=== PATIENT | male | born 1990 | race Caucasian/White ===

== ENCOUNTER 2016-12-29 08:59 | Emergency (ER) | payer MEDICAID ==
[2016-12-29 09:04] VITALS: RESP 16; TEMP 98.2
[2016-12-29] MEDS ORDERED: IBUPROFEN 600 MG TAB PO ONE (09:42)
--- NOTE | 2016-12-29 09:46 | EDPHY ---
H & P Time Seen by Provider: 12/29/16 09:12 HPI/ROS: HPI Left foot and ankle injury. 26-year-old male by private vehicle. This patient reports that he was rock climbing. He was about 10 feet off the ground when he fell. He reports that his left foot impacted the ground on the heel and missed the crash pad. He complains of isolated pain to his left heel as well as pain just below the medial malleolus. He denies any other injury or complaint. His head did not hit the ground. There was no loss of consciousness. She denies neck pain. No other extremity pain. ROS: Constitutional: No fever, no chills. No weakness. Respiratory: No cough. No shortness of breath. Cardiac: No chest pain, no palpitations. Gastrointestinal: No abdominal pain, no vomiting, no diarrhea. Genitourinary: No hematuria. No dysuria or increased frequency with urination. Musculoskeletal: No back pain. No neck pain. As above. Skin: No rashes. No lacerations or abrasions. Neurological: No headache. No focal weakness or altered sensation. Past medical history: Denies any past medical history. No allergies to medications. Social history: Here by himself. Nonsmoker. Physical Exam: General Appearance: Alert, no distress. This patient is responding to questions appropriately and in full sentences. This patient appears well- hydrated and well-nourished. Eyes: Pupils equal and round no pallor or injection. No lid edema, erythema or injection. Left foot and ankle exam: He does have some tenderness on the distal aspect of the heel. There is no associated soft tissue swelling, ecchymosis, erythema or warmth. He also has some focal tenderness just inferior and posterior to the medial malleolus. Again no associated soft tissue swelling, ecchymosis, erythema or warmth. The skin is intact. No tenderness on palpation of the proximal fibula. The left foot is neurovascularly intact. Neurological: Motor sensory function is grossly intact. Cranial nerves are normal. Gait is normal. Skin: Warm and dry, no rashes. Musculoskeletal: Neck is supple and nontender. No midline cervical, thoracic, lumbar, sacral tenderness on palpation. Extremities are symmetrical. All joints range without pain or impingement except the left ankle. Psychiatric: No agitation. No depression. Database: EKG: Imaging: Left foot and calcaneus x-ray series: Negative for fracture, subluxation, dislocation. Interpreted by me. Left ankle x-ray series: Negative for fracture, subluxation, dislocation. Interpreted by me. Procedures: Emergency department course: After my evaluation, the patient was sent for x-rays as above. He was given 600 mg of ibuprofen. 10:24 a.m., patient re-evaluated. Resting comfortably at this time. He has his left foot in his ortho boot which he brought with him. Results of his x- rays were discussed with him. He also has crutches with him. Plan will be non weight-bearing and follow up with Orthopedics for re-evaluation in 2-3 days. He was instructed on orthopedic referral and follow-up. Return to emergency department precautions were discussed. All of his questions were answered. He was discharged in good condition. Differential Diagnosis: The differential diagnosis on this patient includes but is not limited to left ankle sprain, left calcaneal contusion. Fracture, subluxation, dislocation unlikely. This represents a partial list of diagnoses considered. These considerations are based on history, physical exam, past history, reassessment and diagnostic testing. Constitutional: Initial Vital Signs Temperature (C) 36.8 C 12/29/16 09:00 Heart Rate 93 12/29/16 09:00 Respiratory Rate 16 12/29/16 09:00 Blood Pressure 155/91 H 12/29/16 09:00 O2 Sat (%) 96 12/29/16 09:00 O2 Delivery Mode Room Air Allergies/Adverse Reactions: No Known Allergies Allergy (Unverified 12/29/16 09:02) Home Medications: Medication Instructions Recorded NK [No Known Home Meds] 12/29/16 Medical Decision Making - Data Points Medications Given: Discontinued Medications Ibuprofen (Motrin) 600 mg PO EDNOW ONE Stop: 12/29/16 09:43 Last Admin: 12/29/16 10:03 Dose: 600 mg Departure - Departure Disposition: Home, Routine, Self-Care Clinical Impression: Injury of left foot, Contusion of left heel, Left ankle sprain Condition: Good Instructions: Ankle Sprain (ED), Foot Contusion (ED) Additional Instructions: Read and follow provided instructions. Follow-up with Orthopedics, Dr. Catarina Vaz, or 1 of his partners in 1-3 days for re-evaluation. They will have access to our x-rays here. Keep left foot in the orthopedic boot and limit weight-bearing to the left foot and ankle until cleared by Orthopedics. Ibuprofen dosin mg every 6 hours with meals for the next 3 days only. Return to the emergency department for worsening pain, discoloration, loss of sensation or other serious concerns. Referrals: NONE *PRIMARY CARE P,. [Primary Care Provider] - As per Instructions Catarina Vaz MD [Medical Doctor] - As per Instructions
[2016-12-29 10:54] VITALS: BP 124/72; PULSE 80; O2SAT 97
== END 2016-12-29 10:54 | disposition home or self-care (01) ==
DX: S99.922A Unspecified injury of left foot, initial encounter (principal); S90.32XA Contusion of left foot, initial encounter; S93.402A Sprain of unspecified ligament of left ankle, initial encounter; W17.89XA Other fall from one level to another, initial encounter; Y93.39 Activity, other involving climbing, rappelling and jumping off